=== PATIENT | female | born 1980 | race Caucasian/White ===

== ENCOUNTER → 2019-10-01 | Outpatient (CLI) | payer OTHER ==
--- NOTE | 2019-10-02 16:17 | RAD ---
DATE: 10/01/2019 9:05 AM EXAM: DIGITAL SCREEN BILAT W/CAD HISTORY: Baseline screening . 38 year-old woman with special-needs. COMPARISON: None Bilateral full field craniocaudal, XCCL, and mediolateral oblique images were obtained using digital technique. This study was interpreted with the benefit of Computerized Aided Detection (CAD). FINDINGS: Breast Density: SCATTERED The breast parenchyma shows scattered fibroglandular densities. Breast parenchyma level B Some motion artifact is present despite multiple attempts at optimized positioning for image acquisition. No suspicious masses, microcalcifications or architectural distortion is present to suggest malignancy in either breast. The visualized axillae are unremarkable. IMPRESSION: No mammographic evidence of malignancy. BI-RADS CATEGORY: 1 NEGATIVE RECOMMENDED FOLLOW-UP: 12M 12 MONTH FOLLOW-UP Annual age-appropriate screening mammography is recommended, unless clinically indicated sooner based on symptoms or change in physical exam, starting at age 40 in average risk women. PQRS compliance statement: Patient information was entered into a reminder system with a target due date for the next mammogram. Mammography is a sensitive method for finding small breast cancers, but it does not detect them all and is not a substitute for careful clinical examination. A negative mammogram does not negate a clinically suspicious finding and should not result in delay in biopsying a clinically suspicious abnormality. "Our facility is accredited by the [employer] Mammography Program."
== END | disposition home or self-care (01) ==
LOC: MAMMO 08:53
PROVIDERS: ATTEND Family Medicine
DX: Z12.31 Encounter for screening mammogram for malignant neoplasm of breast (principal)
CPT/HCPCS: 77067

== ENCOUNTER → 2020-09-09 | Outpatient (CLI) | payer OTHER ==
--- NOTE | 2020-09-09 12:53 | RAD ---
EXAM: Chest, 2 views. HISTORY: Chest pain. COMPARISON: None. FINDINGS: 2 views of the chest are obtained. There is no infiltrate, pleural effusion or pneumothorax . There are median sternotomy changes. There is gas and stool within the colon. There is an IVC filte r at the inferior margin of the [id number]. IMPRESSION: No acute pulmonary finding. Electronically signed by: Angelica Morton MD (09/09/2020 12:50 PM) [id number]
--- NOTE | 2020-09-09 12:55 | RAD ---
EXAM: Right hip, 2 views. HISTORY: Pain. COMPARISON: 05/19/2011. FINDINGS: Frontal and frog-leg views of the right hip are obtained. There is chronic deformity with s light lateral bowing of the proximal femoral metadiaphysis. There is no hip dislocation. There is lum bar scoliosis. There is partial visualization of an IVC filter. The pelvic osseous structures appear gracile. IMPRESSION: 1. Chronic bony deformity of the proximal right femur, stable compared to the prior study performed . 2. No acute osseous finding. Electronically signed by: Angelica Morton MD (09/09/2020 12:52 PM) [id number]
== END ==
LOC: RAD 12:10
PROVIDERS: ATTEND Family Medicine
DX: M21.851 Other specified acquired deformities of right thigh (principal); M41.86 Other forms of scoliosis, lumbar region
CPT/HCPCS: 71046; 73502

== ENCOUNTER → 2020-10-07 | Outpatient (CLI) | payer OTHER ==
--- NOTE | 2020-10-07 11:14 | RAD ---
EXAM: THYROID ULTRASOUND. HISTORY: Thyroid nodule. COMPARISON: None. FINDINGS: Sonographic evaluation of the thyroid gland was performed and evaluated using ACR TI-RADS c riteria. Right lobe: The right lobe measures 4.6 x 1.9 x 1.6 cm. The parenchyma is heterogeneous and mildly hy poechoic. An isoechoic solid nodule at the lower pole measures 10 x 7 mm. Left lobe: The left lobe measures 4.7 x 1.3 x 1.3 cm. The parenchyma is heterogeneous and mildly hypo echoic. Isthmus: The isthmus measures 4 mm. IMPRESSION/RECOMMENDATION: 1. 10 mm TI-RADS 3 nodule in the right lobe. No further follow-up is required. 2. Heterogeneity of the thyroid parenchyma suggests prior thyroiditis. Electronically signed by: Bradley Segura MD (10/07/2020 11:12 AM) [id number]
== END ==
LOC: US 10:06
PROVIDERS: ATTEND Nurse Practitioner Adult Health
DX: E05.10 Thyrotoxicosis with toxic single thyroid nodule without thyrotoxic crisis or storm (principal)
CPT/HCPCS: 76536

== ENCOUNTER → 2021-04-30 | Outpatient (CLI) | payer OTHER ==
--- NOTE | 2021-04-30 11:54 | RAD ---
INDICATION: Reason: IMMOBILE / Spl. Instructions: / History: COMPARISON: None. TECHNIQUE: Grayscale, color and doppler ultrasound images were obtained of the bilateral lower extrem ity venous vasculature. RIGHT: No thrombus identified in the common femoral vein, femoral vein, popliteal vein or visualized calf ve ins. LEFT: No thrombus identified in the common femoral vein, femoral vein, popliteal vein or visualized calf ve ins. Some of the veins are not well seen including within the calf secondary to overlying structures obscu ring as well as small vessel size. IMPRESSION: * No thrombus identified in deep venous system of bilateral lower extremities. Electronically signed by: Vj Louie MD (04/30/2021 11:51 AM) [id number]
== END ==
LOC: US 10:53
PROVIDERS: ATTEND Family Medicine
DX: I82.503 Chronic embolism and thrombosis of unspecified deep veins of lower extremity, bilateral (principal)
CPT/HCPCS: 93970